=== PATIENT | male | born 1945 | race Caucasian/White ===

== ENCOUNTER 2020-07-01 10:18 | Inpatient (IN) ==
[2020-07-01] MEDS ORDERED: IOPAMIDOL 100 ML BOTTLE IV ONE (10:19)
[2020-07-01] MEDS ORDERED: cefTRIAXone 1 GM VIAL IV ONE (12:22)
[2020-07-01] MEDS ORDERED: DEXAMETHASONE 10 MG/ML VIAL IV ONE (12:22)
--- NOTE | 2020-07-01 12:31 | Emergency Department Note ---
HPI General Chief complaint: Cold/Flu Symptoms Stated complaint: body aches, shortness of breath Time Seen by Provider: 07/01/20 12:00 Source: patient Mode of arrival: ambulatory Limitations: no limitations History of Present Illness HPI Narrative: Narrative: Presents to room T7 for evaluation of shortness of breath with cough and fever. The patient reports that he has a history of COPD but does not take oxygen. He states yesterday evening he developed persistent cough with shortness of breath. He denies any sputum production. No chest pain. He does report a fever of 101. No chills or rigors. The patient states that he has had the [employer] vaccine and his second vaccine was 1 week ago. Related Data Home Medications Medication Instructions Recorded Confirmed atorvastatin 20 mg PO HS 12/04/14 12/29/18 clopidogrel 75 mg PO DAILY 12/04/14 12/29/18 diazepam [Valium] 10 mg PO TID 12/04/14 07/01/20 levothyroxine 75 mcg PO DAILY 12/04/14 07/01/20 primidone [Mysoline] 100 mg PO TID 12/04/14 07/01/20 sertraline 100 mg PO DAILY 12/04/14 12/29/18 aspirin [Adult Low Dose Aspirin EC] 81 mg PO DAILY 01/18/16 12/29/18 nitroglycerin 0.4 mg SL PRN PRN 01/18/16 07/01/20 potassium chloride 10 meq PO BID 08/21/16 07/01/20 albuterol sulfate [Ventolin HFA] 2 puff INHALATION Q4HP PRN 07/01/20 07/01/20 hydrocodone-acetaminophen 1 tab PO Q6HP PRN 07/01/20 07/01/20 rosuvastatin 10 mg PO HS 07/01/20 07/01/20 Allergies Allergy/AdvReac Type Severity Reaction Status Date / Time No Known Drug Allergies Allergy Verified 07/01/20 10:24 Review of Systems ROS ROS Narrative: Narrative: All systems ED: reviewed and negative except as stated. [facility] Narrative Patient History Narrative: Narrative: Medical/Surgical/Family History All Active Problems (Updated 07/01/20 @ 17:28 by Fan Ovalles MD) Acute right flank pain (Acute) Essential tremor (Acute) Chest pain (Acute) Acute exacerbation of chronic obstructive airways disease (Acute) Sunburn due to ultraviolet radiation (other than sun) (Acute) Melena (Acute) Pancreatitis (Acute) Right renal artery stenosis (Acute) Chest wall contusion (Acute) Sprain and strain of wrist (Acute) Acute dyspnea (Acute) Bilateral pneumonia (Acute) COVID-19 (Acute) COPD with hypoxia (Acute) Abdominal aortic aneurysm (Acute) Medical History Acute exacerbation of chronic obstructive airways disease Acute right flank pain Chest pain Essential tremor Social History Smoking Status: Former smoker Exam Narrative Narrative: Narrative: General Limitations: no limitations General appearance: Present alert and in no apparent distress Head Head: Present atraumatic, normocephalic and normal inspection Eye Eye: Present normal appearance and EOMI; Absent conjunctival injection ENT ENT: Present normal exam and mucous membranes moist Neck Neck: Present normal inspection and trachea midline Respiratory Respiratory: Present normal lung sounds bilaterally; Absent respiratory distress Cardiovascular Cardiovascular: Present regular rate, normal rhythm and normal heart sounds Adbominal Abdominal: Present soft; Absent distention, tenderness, guarding and rebound Extremities Extremities: Present normal inspection; Absent tenderness Back Back: Present normal inspection; Absent tenderness Neurological Neurological: Present alert, oriented X3 and CN II-XII intact; Absent motor sensory deficit Psychiatric Psychiatric: Present normal affect and normal mood Skin Skin: Present warm (WNL) and dry; Absent rash Course Vital Signs Vital signs: Vital Signs Temperature 101.1 F H 07/01/20 10:18 Pulse Rate 129 H 07/01/20 10:18 Respiratory Rate 28 H 07/01/20 10:18 Blood Pressure 121/90 07/01/20 10:18 Pulse Oximetry (%) 92 07/01/20 10:18 Temperature 101.8 F H 07/01/20 13:09 Pulse Rate 95 H 07/01/20 16:59 Respiratory Rate 21 07/01/20 16:59 Blood Pressure 149/125 07/01/20 16:46 Pulse Oximetry (%) 94 07/01/20 16:59 MDM MDM Narrative Medical decision making narrative: Narrative: Patient presents for evaluation of increasing shortness of breath in the context of COPD and now fever. The patient's CT of the chest shows bilateral pneumonia. There is no evidence of pulmonary embolus. The patient was treated with IV antibiotics after blood cultures. The patient does have a mild leukocytosis at 11.4. The chemistry is unremarkable. Patient's EKG shows a sinus tachycardia. The patient's pulse ox was 89 to 90% on room air. CT of the abdomen pelvis does show extensive aortic aneurysm as noted in the radiologist report. I did discuss this case with Dr. Ferrer at [facility]. He states that the patient does not require urgent intervention and can be followed as an outpatient. I have discussed the case with the hospitalist. We will admit the patient. Incidentally the patient's initial Isela swab was positive for Covid and flu A. There was concern that this may be a false positive and a repeat study was obtained which showed positive for Covid and flu B. The patient did receive IV Decadron and sup plemental oxygen in the emergency department. Lab Data Lab results reviewed: Yes I reviewed the patient's lab results. Result diagrams: 07/01/20 12:47 07/01/20 12:47 Labs: Lab Results 07/01/20 07/01/20 07/01/20 Range/Units 12:47 12:47 12:47 WBC 11.4 H (4.5-11.0) K/mcL RBC 4.49 L (4.50-5.90) M/mcL Hgb 14.4 (13.5-16.5) g/dL Hct 44.0 (41.0-55.0) % POC Hct 45 (41-55) % MCV 98.0 (80.0-100.0) fL MCH 32.1 (26.0-34.0) pg MCHC 32.7 (31.0-36.0) g/dL RDW 12.6 (11.5-14.5) % Plt Count 154 (140-440) K/mcL MPV 11.4 H (7.4-10.4) fL Neut % (Auto) 78.4 H (38.0-78.0) % Lymph % (Auto) 13.8 L (15.0-49.0) % [place] % (Auto) 6.9 (1.0-12.0) % Eos % (Auto) 0.4 (0.0-7.0) % Baso % (Auto) 0.5 (0.0-2.0) % Lymph # (Auto) 1.57 (1.50-4.80) K/mcL [place] # (Auto) 0.78 (0.10-0.90) K/mcL Eos # (Auto) 0.04 (0.00-0.70) K/mcL Baso # (Auto) 0.06 (0.00-0.20) K/mcL Absolute Neutrophils 8.92 H (1.80-8.00) K/mcL VBG Lactic Acid (0.5-2.0) mmol/L POC Sodium 139 (133-145) mEq/L Sodium 137 (133-145) mmol/L POC Potassium 4.3 (3.3-5.1) mEql/L Potassium 4.4 (3.3-5.1) mmol/L POC Chloride 103 (96-108) mEq/L Chloride 103 (96-108) mmol/L Carbon Dioxide 24 (22-30) mmol/L POC Total CO2 25 (22-30) mmol/L Anion Gap 10.0 (8.0-16.0) POC BUN 12 (6-20) mg/dL BUN 12 (8-23) mg/dL Creatinine 1.0 (0.7-1.2) mg/dL POC Creatinine 0.8 (0.6-1.2) mg/dL GFR Calculation 74 Glucose 126 H (70-105) mg/dL POC Glucose 135 H (70-105) mg/dL Calcium 8.9 (8.6-10.4) mg/dL POC WB Ioniz Calcium 1.19 (1.16-1.32) mmEq/L Total Bilirubin 0.5 (0.1-1.0) mg/dL AST 24 (<40) U/L ALT 17 (<40) U/L Alkaline Phosphatase 63 (39-117) U/L Troponin T 0.02 (<0.03) ng/mL NT-Pro-B Natriuret Pep 255.7 H (<125.0) pg/mL Total Protein 6.0 (5.9-8.4) gm/dL Albumin 3.5 (3.2-5.2) gm/dL Globulin 2.5 (2.2-3.7) gm/dL Albumin/Globulin Ratio 1.4 (1.0-2.3) Urine Color Urine Appearance (Clear) Urine pH (5.0-9.0) Ur Specific [place] (1.000-1.035) Urine Protein (Negative) mg/dL Urine Glucose (UA) (Negative) mg/dL Urine Ketones (Negative) mg/dL Urine Occult Blood (Negative) [place]/mcL Urine Nitrate (Negative) Urine Bilirubin (Negative) mg/dL Urine Urobilinogen mg/dL Ur Leukocyte Esterase (Negative) /ug Urine RBC (0-3) /hpf Urine WBC (0-4) /hpf Ur Squamous Epith Cells (0-4) /hpf Urine Bacteria (0) /hpf Urine Mucus (None) /hpf Ur Culture Indicated? 07/01/20 07/01/20 Range/Units 12:47 15:10 WBC (4.5-11.0) K/mcL RBC (4.50-5.90) M/mcL Hgb (13.5-16.5) g/dL Hct (41.0-55.0) % POC Hct (41-55) % MCV (80.0-100.0) fL MCH (26.0-34.0) pg MCHC (31.0-36.0) g/dL RDW (11.5-14.5) % Plt Count (140-440) K/mcL MPV (7.4-10.4) fL Neut % (Auto) (38.0-78.0) % Lymph % (Auto) (15.0-49.0) % [place] % (Auto) (1.0-12.0) % Eos % (Auto) (0.0-7.0) % Baso % (Auto) (0.0-2.0) % Lymph # (Auto) (1.50-4.80) K/mcL [place] # (Auto) (0.10-0.90) K/mcL Eos # (Auto) (0.00-0.70) K/mcL Baso # (Auto) (0.00-0.20) K/mcL Absolute Neutrophils (1.80-8.00) K/mcL VBG Lactic Acid 2.9 H (0.5-2.0) mmol/L POC Sodium (133-145) mEq/L Sodium (133-145) mmol/L POC Potassium (3.3-5.1) mEql/L Potassium (3.3-5.1) mmol/L POC Chloride (96-108) mEq/L Chloride (96-108) mmol/L Carbon Dioxide (22-30) mmol/L POC Total CO2 (22-30) mmol/L Anion Gap (8.0-16.0) POC BUN (6-20) mg/dL BUN (8-23) mg/dL Creatinine (0.7-1.2) mg/dL POC Creatinine (0.6-1.2) mg/dL GFR Calculation Glucose (70-105) mg/dL POC Glucose (70-105) mg/dL Calcium (8.6-10.4) mg/dL POC WB Ioniz Calcium (1.16-1.32) mmEq/L Total Bilirubin (0.1-1.0) mg/dL AST (<40) U/L ALT (<40) U/L Alkaline Phosphatase (39-117) U/L Troponin T (<0.03) ng/mL NT-Pro-B Natriuret Pep (<125.0) pg/mL Total Protein (5.9-8.4) gm/dL Albumin (3.2-5.2) gm/dL Globulin (2.2-3.7) gm/dL Albumin/Globulin Ratio (1.0-2.3) Urine Color Yellow Urine Appearance Clear (Clear) Urine pH 6.0 (5.0-9.0) Ur Specific [place] 1.015 (1.000-1.035) Urine Protein Negative (Negative) mg/dL Urine Glucose (UA) Negative (Negative) mg/dL Urine Ketones Negative (Negative) mg/dL Urine Occult Blood Trace-intact A (Negative) [place]/mcL Urine Nitrate Negative (Negative) Urine Bilirubin Negative (Negative) mg/dL Urine Urobilinogen Normal mg/dL Ur Leukocyte Esterase Negative (Negative) /ug Urine RBC 2 (0-3) /hpf Urine WBC < 1 (0-4) /hpf Ur Squamous Epith Cells 0 (0-4) /hpf Urine Bacteria None (0) /hpf Urine Mucus Few A (None) /hpf Ur Culture Indicated? No ED POC Tests ED POC Tests: DILIP - Influenza A Positive DILIP - Influenza B Negative DILIP - SARS Antigen Positive Radiology Data Radiology results reviewed: Yes I reviewed the patient's radiology results. EKG Data EKG #1: EKG attestation: Yes I reviewed and interpreted this EKG., Yes There are no EKG findings of acute coronary syndrome and Yes This EKG will be read by logistics account manager EKG results narrative: Normal sinus rhythm, rate 104, normal ST segments, normal QRS, no ectopy Rhythm Strip Data Rhythm Strip Rate: 105 Interpretation: Sinus tachycardia Pulse Oximetry Data Pulse Ox %: 89 Interpretation: Room air, hypoxia CC TIME Critical Care Time Critical Care Time: Yes Total Critical Care Time: 30 Attestation: Approximately 30 minutes of critical care time was used in order to assess and manage the high probability of imminent or life threatening deterioration which required my highest level of preparedness and interventions with frequent patient assessments. This time is excluding time spent on separately billable procedures. Discharge Plan Patient/Caregiver Discharge Instructions Pt seen by CLOCKMAKER APPRENTICE/PA only: No Clinical Impression: Acute dyspnea, Bilateral pneumonia, COVID-19, COPD with hypoxia, Abdominal aortic aneurysm Patient Disposition: Xfer As Inpt ([facility]) Follow up with: Sandip Lyons DO [Primary Care Provider] - Prescriptions: No Action atorvastatin 40 MG Tablet 20 mg PO HS RF: 0 primidone [Mysoline] 50 MG tablet 100 mg PO TID RF: 0 levothyroxine 50 MCG tablet 75 mcg PO DAILY RF: 0 diazepam [Valium] 10 MG tablet 10 mg PO TID RF: 0 sertraline 50 MG Tablet 100 mg PO DAILY RF: 0 clopidogrel 300 MG Tablet 75 mg PO DAILY RF: 0 aspirin [Adult Low Dose Aspirin] 81 MG Tablet.Dr 81 mg PO DAILY RF: 0 nitroglycerin 0.4 MG tablet, sublingual 0.4 mg SL PRN PRN (Reason: Chest Pain) RF: 0 potassium chloride 10 MEQ tablet extended release 10 meq PO BID RF: 0 albuterol sulfate [Ventolin HFA] 90 mcg/actuation Hfa Aerosol Inhaler 2 puff INHALATION Q4HP PRN (Reason: Shortness Of Breath) RF: 0 rosuvastatin 10 mg Tablet 10 mg PO HS RF: 0 hydrocodone-acetaminophen 1 TAB tablet 1 tab PO Q6HP PRN (Reason: Pain) RF: 0
[2020-07-01 13:05] LABS: POC Blood Urea Nitrogen 12 mg/dL (6-20); POC CO2 25 mmol/L (22-30); POC Calcium, Ionized 1.19 mmEq/L (1.16-1.32); POC Chloride 103 mEq/L (96-108); POC Creatinine 0.8 mg/dL (0.6-1.2); POC Glucose, Random 135 mg/dL (70-105); POC Hematocrit 45 % (41-55); POC Potassium 4.3 mEql/L (3.3-5.1); POC Sodium 139 mEq/L (133-145)
[2020-07-01] MEDS ORDERED: fentaNYL 100 MCG/2 ML VIAL IV ONE (13:22)
[2020-07-01] MEDS ORDERED: ONDANSETRON 4 MG/2 ML VIAL IV ONE (13:23)
[2020-07-01 13:50] LABS: Basophils # (Auto) 0.06 K/mcL (0.00-0.20); Basophils % (Auto) 0.5 % (0.0-2.0); Eosinophils # (Auto) 0.04 K/mcL (0.00-0.70); Eosinophils % (Auto) 0.4 % (0.0-7.0); Hemoglobin 14.4 g/dL (13.5-16.5); Lymphocytes # (Auto) 1.57 K/mcL (1.50-4.80); Lymphocytes % (Auto) 13.8 % (15.0-49.0); Mean Corpuscular HGB Conc 32.7 g/dL (31.0-36.0); Mean Platelet Volume 11.4 fL (7.4-10.4); Monocytes # (Auto) 0.78 K/mcL (0.10-0.90); Monocytes % (Auto) 6.9 % (1.0-12.0); Neutrophils % (Auto) 78.4 % (38.0-78.0); Platelet Count 154 K/mcL (140-440); RBC 4.49 M/mcL (4.50-5.90); Red Cell Distribution Width 12.6 % (11.5-14.5); WBC 11.4 K/mcL (4.5-11.0)
[2020-07-01 14:13] LABS: proBNP 255.7 pg/mL (<125.0)
[2020-07-01 14:18] LABS: ALT/SGPT 17 U/L (<40); AST/SGOT 24 U/L (<40); Albumin 3.5 gm/dL (3.2-5.2); Albumin/Globulin Ratio 1.4 (1.0-2.3); Alkaline Phosphatase 63 U/L (39-117); Bilirubin,Total 0.5 mg/dL (0.1-1.0); Blood Urea Nitrogen 12 mg/dL (8-23); Calcium 8.9 mg/dL (8.6-10.4); Carbon Dioxide 24 mmol/L (22-30); Chloride 103 mmol/L (96-108); Globulin 2.5 gm/dL (2.2-3.7); Glomerular Filtration Rate 74; Glucose 126 mg/dL (70-105)
--- NOTE | 2020-07-01 14:22 | Cat Scan Report ---
INDICATION: SOA, hx of AAA COMPARISON: Previous chest CT scan dated 09/27/2019. Previous abdominal and pelvic CT scan dated 10/04/2018 TECHNIQUE: Axial images were obtained through the chest,abdomen and pelvis. Sagittally and coronally reformatted images. 90ml Isovue 370 injected intravenously. Oral contrast material was not administered FINDINGS: Chest CT: Lungs:Severe emphysema. There is a spiculated density in the right upper lobe. This measures 9 mm maximally. This is unchanged since 09/27/2019. Continued follow-up necessary to exclude malignancy. There is infiltrate in the left upper lobe and left lower lobe. These focal infiltrates are new since previous examination. Findings are suspicious for superimposed infection upon severe emphysema. No other focal pulmonary parenchymal mass. There is no honeycombing. No bronchiectasis. Mediastinum:Mild mediastinal adenopathy is nonspecific but slightly increased since previous examination. Main pulmonary artery, right pulmonary artery, left pulmonary artery are negative. No intraluminal filling defects. No lobar, segmental, or subsegmental abnormalities. Thoracic aorta is negative. There is no aneurysmal dilatation. No significant calcification of the aortic arch. There is no dissection. Heart:No significant cardiomegaly. No pericardial effusion. Severe coronary artery calcification Pleura:No pleural fluid. No pleural-based mass. No pleural calcifications Axilla, supraclavicular regions, chest wall:There is an abnormal right axillary lymph node. This is round without normal hilum. This measures 2.3 x 2.7 cm. This is increased slightly in size since previous examination. It previously measured 2.3 cm in maximum dimension. There is no pathologic left axillary adenopathy Musculoskeletal:Negative thoracic spine. No compression fractures. No lytic lesions. No paraspinal mass Abdomen/Pelvis: Liver:Negative liver. No focal intrahepatic mass. Liver contour is smooth. There is no ascites Gallbladder, bilary:Previous cholecystectomy. Common bile duct measures 12 mm. No intrahepatic bile duct dilatation. Spleen:No splenomegaly. No focal intrasplenic abnormality. Normal enhancement of splenic and portal veins. Pancreas:No pancreatic mass. No peripancreatic abnormality Adrenal glands:Negative Kidneys, ureters, bladder:No solid renal mass. No hydronephrosis. Small benign right renal cyst is stable No hydroureter. No ureteral stones Bladder is grossly negative. No bladder calculi Gastrointestinal:No detectable colonic mass. There is no diverticulitis. There is extensive sigmoid diverticulosis. Small bowel is negative. No mechanical small bowel obstruction. Stomach and duodenum are within normal limits Appendix: The appendix is well visualized. No evidence for appendicitis Vascular:There is calcification of the abdominal aorta. There is an irregular infrarenal abdominal aortic aneurysm. This measures 4.2 cm in maximum mediolateral dimension, 4.3 cm in AP dimension, and approximately 11.0 cm in craniocaudal dimension. There is extensive mural thrombus. There is a finding consistent with a thrombosed penetrating ulcer anterolateral leg. This measures 1.5 x 3.6 cm and has increased in size since previous examination. Although there is no contrast material within this apparent penetrating ulcer isn't appears unstable. There is a 2nd area of exophytic contour abnormality with mural thrombus. This is in the proximal portion of the abdominal aortic aneurysm and extends posterolaterally toward the left. This is slightly more prominent than on previous examination. This may be a thrombosed penetrating ulcer with slight interval growth. Origins of the celiac trunk and superior mesenteric artery are negative. There is calcification of the common iliac arteries and external iliac arteries bilaterally. No stenosis or occlusion. Common iliac arteries are mildly ectatic and measure 1.5 cm in cross-sectional diameter. Lymphatic:No pathologic retroperitoneal or mesenteric adenopathy Mesentery, peritoneum:No free intraperitoneal fluid. No intra-abdominal abscess. No pneumoperitoneum Reproductive:Prostate is moderately enlarged with calcification Musculoskeletal:No compression fractures. No lytic lesions. Sacrum, pelvis, hips are negative. There is no anterior abdominal wall or inguinal hernia IMPRESSION: 1. Severe emphysema 2. Spiculated parenchymal density in the right upper lobe is stable since 09/27/2019. Continued follow-up recommended 3. Acute infiltrates in the left upper lobe and left lower lobe may be consistent with pneumonia superimposed upon chronic emphysematous disease 4. Severe coronary artery calcification. 5. Nonspecific mediastinal adenopathy 6. 2.7 cm right axillary lymph node. This is enlarged slightly since previous examination 7. Previous cholecystectomy. Common bile but is dilated to 12 mm 8. Severe atherosclerotic disease within the abdominal aorta. 4 irregular infrarenal abdominal aortic aneurysm is stable in overall size. There is extensive mural thrombosis 9. Findings consistent with thrombosed penetrating ulcers, slightly increased 10. No aortic dissection The exam was performed using radiation dose optimization techniques including, but not limited to, automated exposure control, adjustment of the mA and/or kV according to patient size and use of iterative reconstruction technique. Interpreted and Authenticated by: Timi Kelly 07/01/20
[2020-07-01 16:53] LABS: Appearance,Urine Clear (Clear); Bilirubin,Urine Negative (Negative); Color,Urine Yellow; Culture Indicated,Urine No; Glucose,Urine (UA) Negative (Negative); Ketones,Urine Negative (Negative); Leukocyte Esterase,Urine Negative /ug (Negative); Mucus,Urine FEW /hpf; Nitrate,Urine Negative (Negative); Protein,Urine Negative (Negative); Specific Gravity,Urine 1.015 (1.000-1.035); Urine Blood Trace-intact ery/mcL (Negative); Urine RBC 2 /hpf (0-3); Urine Squamous Epithelial Cell 0 /hpf (0-4); Urine WBC < 1 /hpf (0-4); Urobilinogen,Urine Normal
--- NOTE | 2020-07-01 17:10 | Internal Med History&Physical ---
HPI History of Present Illness Patient information: Note initiated : 07/01/20 at 4:48 pm Service Date, if different from initiated Date: [] Patient: Atilio Gallardo a 74 y/o M admitted on for body aches, shortness of breath. Chief Complaint: [] History of present illness: Mr. Gallardo is a 74 year old male with a history of COPD, CAD, AAA, Hypothyroidism who presented to the ED for fever and cough. In the ED the patient was found to be hypoxic, febrile (101.8 F), tachycardic, and tachypneic. ED labs showed mild leukocytosis. Lactic acid was 2.9. NT-pro BNP was mildly elevated. Pulmonary imaging with contrast CT scan showed left upper and left lower lobe infiltrates consistent with pneumonia superimposed on chronic emphysematous disease. the ED CT chest/abdomen/pelvis also showed interval enlargement of abdominal aortic aneurysm and right axillary lymph node since comparison CT scans in 2018 (abdomen/pelvis) and 2019 (chest), respectively. In the ED, the patient tested positive for influenza A and SARS-CoV-2 antigens. The patient said he received his second Pfizer COVID vaccine about 1 week ago. Review of Systems Constitutional: positive for fever and fatigue Eyes: no vision changes or pain Cardiovascular: no chest pain, no palpitations Respiratory: positive or productive cough and shortness of breath Gastrointestinal: positive for right lower quadrant abdominal pain Genitourinary: no dysuria or difficulty voiding Musculoskeletal: bilateral knee pain Integumentary: no skin lesion or wound Neurological: no focal weakness or numbness Psychiatric: no anxiety or depression PFSH PFSH All Active Problems (Updated 07/01/20 @ 17:28 by Fan Ovalles MD) Acute right flank pain (Acute) Essential tremor (Acute) Chest pain (Acute) Acute exacerbation of chronic obstructive airways disease (Acute) Sunburn due to ultraviolet radiation (other than sun) (Acute) Melena (Acute) Pancreatitis (Acute) Right renal artery stenosis (Acute) Chest wall contusion (Acute) Sprain and strain of wrist (Acute) Acute dyspnea (Acute) Bilateral pneumonia (Acute) COVID-19 (Acute) COPD with hypoxia (Acute) Abdominal aortic aneurysm (Acute) Medical History Acute exacerbation of chronic obstructive airways disease Acute right flank pain Chest pain Essential tremor MEDS/ALLERGIES Home Medications and Allergies Home Medications Medication Instructions Recorded Confirmed Type atorvastatin 20 mg PO HS 12/04/14 12/29/18 History clopidogrel 75 mg PO DAILY 12/04/14 12/29/18 History diazepam [Valium] 10 mg PO TID 12/04/14 07/01/20 History levothyroxine 75 mcg PO DAILY 12/04/14 07/01/20 History primidone [Mysoline] 100 mg PO TID 12/04/14 07/01/20 History sertraline 100 mg PO DAILY 12/04/14 12/29/18 History aspirin [Adult Low Dose Aspirin EC] 81 mg PO DAILY 01/18/16 12/29/18 History nitroglycerin 0.4 mg SL PRN PRN 01/18/16 07/01/20 History potassium chloride 10 meq PO BID 08/21/16 07/01/20 History albuterol sulfate [Ventolin HFA] 2 puff INHALATION Q4HP PRN 07/01/20 07/01/20 History hydrocodone-acetaminophen 1 tab PO Q6HP PRN 07/01/20 07/01/20 History rosuvastatin 10 mg PO HS 07/01/20 07/01/20 History Allergies Allergy/AdvReac Type Severity Reaction Status Date / Time No Known Drug Allergies Allergy Verified 07/01/20 10:24 EXAM Constitutional Vitals: Temp Pulse Resp BP Pulse Ox 101.8 F H 102 H 24 H 105/68 96 07/01/20 13:09 07/01/20 15:46 07/01/20 15:46 07/01/20 15:46 07/01/20 15:46 Additional findings Additional findings: Head: Atraumatic, normal inspection. Eyes: normal appearance, no scleral icterus. Neck: full ROM Respiratory: nasal canula oxygen (2l/min), bilateral rales . Cardiovascular: normal rate and rhythm, S1, S2, pacemaker present left upper chest GI/Abdominal: soft, tenderness RLQ, no guarding. Extremities: full range of motion, nontender. Neurological: CN II-XII intact, intact motor, intact sensation. Psychiatric: normal mood. Skin: warm, normal color DATA Data Completed and Pending Labs: Labs from last 24 hours 07/01/20 07/01/20 07/01/20 15:10 12:47 12:47 WBC RBC Hgb Hct POC Hct MCV MCH MCHC RDW Plt Count MPV Neut % (Auto) Lymph % (Auto) [place] % (Auto) Eos % (Auto) Baso % (Auto) Lymph # (Auto) [place] # (Auto) Eos # (Auto) Baso # (Auto) Absolute Neutrophils VBG Lactic Acid 2.9 H POC Sodium Sodium POC Potassium Potassium POC Chloride Chloride Carbon Dioxide POC Total CO2 Anion Gap POC BUN BUN Creatinine POC Creatinine GFR Calculation Glucose POC Glucose Calcium POC WB Ioniz Calcium Total Bilirubin AST ALT Alkaline Phosphatase Troponin T 0.02 NT-Pro-B Natriuret Pep Total Protein Albumin Globulin Albumin/Globulin Ratio Urine Color Pending Urine Appearance Pending Urine pH Pending Ur Specific [place] Pending Urine Protein Pending Urine Glucose (UA) Pending Urine Ketones Pending Urine Occult Blood Pending Urine Nitrate Pending Urine Bilirubin Pending Urine Urobilinogen Pending Ur Leukocyte Esterase Pending 07/01/20 07/01/20 12:47 12:47 WBC 11.4 H RBC 4.49 L Hgb 14.4 Hct 44.0 POC Hct 45 MCV 98.0 MCH 32.1 MCHC 32.7 RDW 12.6 Plt Count 154 MPV 11.4 H Neut % (Auto) 78.4 H Lymph % (Auto) 13.8 L [place] % (Auto) 6.9 Eos % (Auto) 0.4 Baso % (Auto) 0.5 Lymph # (Auto) 1.57 [place] # (Auto) 0.78 Eos # (Auto) 0.04 Baso # (Auto) 0.06 Absolute Neutrophils 8.92 H VBG Lactic Acid POC Sodium 139 Sodium 137 POC Potassium 4.3 Potassium 4.4 POC Chloride 103 Chloride 103 Carbon Dioxide 24 POC Total CO2 25 Anion Gap 10.0 POC BUN 12 BUN 12 Creatinine 1.0 POC Creatinine 0.8 GFR Calculation 74 Glucose 126 H POC Glucose 135 H Calcium 8.9 POC WB Ioniz Calcium 1.19 Total Bilirubin 0.5 AST 24 ALT 17 Alkaline Phosphatase 63 Troponin T NT-Pro-B Natriuret Pep 255.7 H Total Protein 6.0 Albumin 3.5 Globulin 2.5 Albumin/Globulin Ratio 1.4 Urine Color Urine Appearance Urine pH Ur Specific [place] Urine Protein Urine Glucose (UA) Urine Ketones Urine Occult Blood Urine Nitrate Urine Bilirubin Urine Urobilinogen Ur Leukocyte Esterase A/P Narrative A/P Narrative: Assessment: 74 year old male with a history of COPD, CAD, AAA, hypothyroidism admitted for community acquired pneumonia. #Hypoxic respiratory failure #Community acquired pneumonia #Positive Isela for Influenza and SARS antigens #Sepsis secondary to pneumonia #Lactic acidosis #COPD #Abdominal aortic aneurysm #Pathologic right axillary lymphadenopathy #Coronary artery disease-stable Plan -Ceftriaxone and Azithromycin IV for now, deescalate to oral when afebrile x48hrs. -Dexamethasone daily. -Tamiflu BID pending influenza PCR results. -Scheduled duonebs, albuterol nebs prn. -Oxygen supplementation as needed. -IV fluid, repeat lactic acid. -Sputum culture. -Follow blood cultures. -Follow up SARS-CoV-2 PCR ([place]), if positive start Remdesivir. -Respiratory panel 1 for Influenza A/B PCR. -Medication reconciliation then resume essential home meds. -DVT ppx: lovenox SQ -Code status: Full -Disposition: home Time Spent With Patient Time: Total time spent is greater than 50% in coordination of care (as documented) at patient's floor/unit and/or counseling patient:
[2020-07-01] MEDS ORDERED: 0.9 % SODIUM CHLORIDE 1,000 ML IV ONE (19:19)
[2020-07-01] MEDS ORDERED: ONDANSETRON 4 MG/2 ML VIAL IV PRN (19:19)
[2020-07-01] MEDS ORDERED: cefTRIAXone 1 GM in DEXTROSE 5% IN WATER 50 ML IV SCH (19:19)
[2020-07-01] MEDS ORDERED: ALBUTEROL SULFATE 2.5 MG/3 ML NEBULIZER NEB PRN (19:19)
[2020-07-01] MEDS: DOCUSATE SODIUM 100 MG CAPSULE PO SCH (20:41)
[2020-07-01] MEDS ORDERED: SENNOSIDES 1 TABLET PO SCH (21:00)
[2020-07-01] MEDS ORDERED: AZITHROMYCIN 500 MG in DEXTROSE 5% IN WATER 250 ML IV SCH (21:00)
[2020-07-01] MEDS ORDERED: OSELTAMIVIR PHOSPHATE 75 MG CAPSULE PO SCH (21:00)
[2020-07-01] MEDS: 0.9 % SODIUM CHLORIDE 10 ML SYRINGE IV SCH (21:16)
[2020-07-01] MEDS: IPRATROPIUM/ALBUTEROL 3 ML AMPUL.NEB NEB SCH (21:34)
[2020-07-01] MEDS ORDERED: MELATONIN 3 MG TABLET PO PRN (22:16)
[2020-07-01] MEDS ORDERED: MELATONIN 3 MG TABLET PO ONE (22:35)
[2020-07-02] MEDS: IPRATROPIUM/ALBUTEROL 3 ML AMPUL.NEB NEB SCH ×3 (01:56→13:55)
[2020-07-02] MEDS: 0.9 % SODIUM CHLORIDE 10 ML SYRINGE IV SCH ×2 (06:08→13:10)
[2020-07-02 07:29] LABS: Hematocrit 40.6 % (41.0-55.0); Hemoglobin 13.2 g/dL (13.5-16.5); Mean Cell Volume 99.3 fL (80.0-100.0); Mean Corpuscular HGB Conc 32.5 g/dL (31.0-36.0); Mean Platelet Volume 11.8 fL (7.4-10.4); Platelet Count 134 K/mcL (140-440); RBC 4.09 M/mcL (4.50-5.90); Red Cell Distribution Width 12.8 % (11.5-14.5); WBC 8.6 K/mcL (4.5-11.0)
[2020-07-02 07:44] LABS: Blood Urea Nitrogen 17 mg/dL (8-23); Carbon Dioxide 23 mmol/L (22-30); Chloride 104 mmol/L (96-108); Glomerular Filtration Rate 84; Glucose 186 mg/dL (70-105)
[2020-07-02 08:16] LABS: Band Neutrophils % 1 % (0-10); Lymphocytes % 10 % (15-49); Monocytes % (Manual) 4 % (1-12); Myelocytes % 1 %; Platelet Estimate DECREASED (Normal); RBC Morphology NORMAL (Normal); Reactive Lymphocytes 1 % (0-2); Segmented Neutrophils % 83 % (38-78)
[2020-07-02] MEDS: DOCUSATE SODIUM 100 MG CAPSULE PO SCH (08:33)
[2020-07-02] MEDS ORDERED: ENOXAPARIN 40 MG/0.4 ML SYRINGE SQ SCH (09:00)
[2020-07-02] MEDS ORDERED: DEXAMETHASONE 4 MG TABLET PO SCH (09:00)
[2020-07-02] MEDS ORDERED: cefTRIAXone 1 GM VIAL IV SCH (09:00)
[2020-07-02] MEDS ORDERED: 0.9 % SODIUM CHLORIDE 1,000 ML IV ONE (12:20)
--- NOTE | 2020-07-02 12:20 | Discharge Summary ---
Discharge Provider Provider Patient information: Note initiated : 07/02/20 at 12:16 pm Service Date, if different from initiated Date: [] Patient: Atilio Gallardo 74 y/o M admitted on 07/01/20 for body aches, shortness of breath. Chief Complaint: [] Date of admission: 07/01/20 18:36 Discharge date: 07/02/20 Primary care physician: Sandip Lyons Consults: 07/01/20 Consult to Physician [CONS] Stat Comment: Consulting Provider: Andres Skelton Reason For Exam: Physician to Consult Discharge Meds Discharge Medications Home Medications atorvastatin 20 mg PO HS 12/04/14 [History Confirmed 07/01/20 Last Taken 09/14 20:00] diazepam [Valium] 10 mg PO TID 12/04/14 [History Confirmed 07/01/20 Last Taken 06/30/20 08:00] levothyroxine 75 mcg PO DAILY 12/04/14 [History Confirmed 07/01/20 Last Taken 07/01/20 08:00] primidone [Mysoline] 100 mg PO TID 12/04/14 [History Confirmed 07/01/20 Last Taken 07/01/20 08:00] sertraline 100 mg PO DAILY 12/04/14 [History Confirmed 07/01/20 Last Taken 06/30/20 20:00] aspirin [Adult Low Dose Aspirin] 81 mg PO DAILY 01/18/16 [History Confirmed 07/01/20 Last Taken 06/30/20 08:00] nitroglycerin 0.4 mg SL PRN PRN 01/18/16 [History Confirmed 07/01/20 Last Taken 06/29/20 08:00] potassium chloride 10 meq PO QIDP 08/21/16 [History Confirmed 07/01/20 Last Taken 07/01/20 08:00] albuterol sulfate [Ventolin HFA] 2 puff INHALATION Q4HP PRN 07/01/20 [History Confirmed 07/01/20 Last Taken 06/30/20 08:00] hydrocodone-acetaminophen 1 tab PO Q6HP PRN 07/01/20 [History Confirmed 07/01/20 Last Taken 06/30/20 20:00] rosuvastatin 10 mg PO HS 07/01/20 [History Confirmed 07/01/20 Last Taken 06/30/20 20:00] azithromycin 250 mg PO QDAY 4 Days #4 tab 07/02/20 [Rx Last Taken Unknown] cefuroxime axetil 500 mg PO BID 4 Days #8 tab 07/02/20 [Rx Last Taken Unknown] COURSE Hospital Course Hospital course: Mr. Gallardo is a 74 year old male with a history of COPD, CAD, AAA, hypothyroidism who presented to the ED for fever and cough. In the ED the patient was found to be hypoxic, febrile (101.8 F), tachycardic, and tachypneic. ED labs showed mild leukocytosis. Lactic acid was 2.9. NT-pro BNP was mildly elevated. Pulmonary imaging with contrast CT scan showed left upper and left lower lobe infiltrates consistent with pneumonia superimposed on chronic emphysematous disease. the ED CT chest/abdomen/pelvis also showed interval enlargement of abdominal aortic aneurysm and right axillary lymph node since comparison CT scans in 2018 (abdomen/pelvis) and 2019 (chest), respectively. In the ED, the patient tested positive for influenza A and SARS-CoV-2 antigens however follow up PCR testing for influenza and SARS-CoV-2 was negative. The initial positive test was likely a result of equipment issues as there were several other similar cases on that day in the ED. Sputum culture likely contaminated-many epithelial cells present. Blood cultures showing no growth at discharge. By the next day the patient felt much better and wanted to go home. Repeat lactic acid was elevated, the patient was given more IV fluid followed by decrease in lactic acid but not back to normal. The patient's blood pressure was stable, he was weaned off nasal [place] oxygen. The patient was discharged to home to complete about 5 day of oral antibiotic treatment for community acquired pneumonia. Discharge diagnosis: Community acquired pneumonia Time Spent with Patient Time attestation: Total time spent providing and/or coordinating discharge services: EXAM Constitutional Vitals: Temp Pulse Resp BP Pulse Ox 97.4 F 89 18 98/55 95 07/02/20 08:42 07/02/20 08:42 07/02/20 08:42 07/02/20 08:42 07/02/20 08:42 Head Head exam: Present normal inspection and normocephalic Eye Eye exam: Present normal appearance ENT ENT exam: Present normal exam Respiratory Respiratory exam: Absent accessory muscle use, respiratory distress and wheezes Expanded Respiratory Exam Location: rales: Left Cardiovascular Cardiovascular exam: Present normal rate and rhythm GI/Abdominal GI/Abdominal exam: Present soft; Absent rebound and tenderness Extremities Exam Extremities exam: Present full ROM and normal inspection Neurological Exam Neurological exam: Present alert, CN II-XII intact and oriented X3 Psychiatric Psychiatric exam: Present normal mood Skin Skin exam: Present normal color and warm Discharge Data Data Completed and Pending Labs on day of discharge: Labs from last 24 hours 07/02/20 07/02/20 07/02/20 09:06 05:42 05:42 WBC 8.6 RBC 4.09 L Hgb 13.2 L Hct 40.6 L POC Hct MCV 99.3 MCH 32.3 MCHC 32.5 RDW 12.8 Plt Count 134 L MPV 11.8 H Neut % (Auto) Lymph % (Auto) [place] % (Auto) Eos % (Auto) Baso % (Auto) Lymph # (Auto) [place] # (Auto) Eos # (Auto) Baso # (Auto) Seg Neutrophils % 83 H Band Neutrophils % 1 Lymphocytes % 10 L Monocytes % (Manual) 4 Myelocytes % 1 Absolute Neutrophils Reactive Lymphocytes 1 Platelet Estimate Decreased A RBC Morphology Normal VBG Lactic Acid 3.8 H POC Sodium Sodium 135 POC Potassium Potassium 4.2 POC Chloride Chloride 104 Carbon Dioxide 23 POC Total CO2 Anion Gap 8.0 POC BUN BUN 17 Creatinine 0.9 POC Creatinine GFR Calculation 84 Glucose 186 H POC Glucose Calcium 9.0 POC WB Ioniz Calcium Total Bilirubin AST ALT Alkaline Phosphatase Troponin T NT-Pro-B Natriuret Pep Total Protein Albumin Globulin Albumin/Globulin Ratio Urine Color Urine Appearance Urine pH Ur Specific [place] Urine Protein Urine Glucose (UA) Urine Ketones Urine Occult Blood Urine Nitrate Urine Bilirubin Urine Urobilinogen Ur Leukocyte Esterase Urine RBC Urine WBC Ur Squamous Epith Cells Urine Bacteria Urine Mucus Ur Culture Indicated? 07/01/20 07/01/20 07/01/20 15:10 12:47 12:47 WBC RBC Hgb Hct POC Hct MCV MCH MCHC RDW Plt Count MPV Neut % (Auto) Lymph % (Auto) [place] % (Auto) Eos % (Auto) Baso % (Auto) Lymph # (Auto) [place] # (Auto) Eos # (Auto) Baso # (Auto) Seg Neutrophils % Band Neutrophils % Lymphocytes % Monocytes % (Manual) Myelocytes % Absolute Neutrophils Reactive Lymphocytes Platelet Estimate RBC Morphology VBG Lactic Acid 2.9 H POC Sodium Sodium POC Potassium Potassium POC Chloride Chloride Carbon Dioxide POC Total CO2 Anion Gap POC BUN BUN Creatinine POC Creatinine GFR Calculation Glucose POC Glucose Calcium POC WB Ioniz Calcium Total Bilirubin AST ALT Alkaline Phosphatase Troponin T 0.02 NT-Pro-B Natriuret Pep Total Protein Albumin Globulin Albumin/Globulin Ratio Urine Color Yellow Urine Appearance Clear Urine pH 6.0 Ur Specific [place] 1.015 Urine Protein Negative Urine Glucose (UA) Negative Urine Ketones Negative Urine Occult Blood Trace-intact A Urine Nitrate Negative Urine Bilirubin Negative Urine Urobilinogen Normal Ur Leukocyte Esterase Negative Urine RBC 2 Urine WBC < 1 Ur Squamous Epith Cells 0 Urine Bacteria None Urine Mucus Few A Ur Culture Indicated? No 07/01/20 07/01/20 12:47 12:47 WBC 11.4 H RBC 4.49 L Hgb 14.4 Hct 44.0 POC Hct 45 MCV 98.0 MCH 32.1 MCHC 32.7 RDW 12.6 Plt Count 154 MPV 11.4 H Neut % (Auto) 78.4 H Lymph % (Auto) 13.8 L [place] % (Auto) 6.9 Eos % (Auto) 0.4 Baso % (Auto) 0.5 Lymph # (Auto) 1.57 [place] # (Auto) 0.78 Eos # (Auto) 0.04 Baso # (Auto) 0.06 Seg Neutrophils % Band Neutrophils % Lymphocytes % Monocytes % (Manual) Myelocytes % Absolute Neutrophils 8.92 H Reactive Lymphocytes Platelet Estimate RBC Morphology VBG Lactic Acid POC Sodium 139 Sodium 137 POC Potassium 4.3 Potassium 4.4 POC Chloride 103 Chloride 103 Carbon Dioxide 24 POC Total CO2 25 Anion Gap 10.0 POC BUN 12 BUN 12 Creatinine 1.0 POC Creatinine 0.8 GFR Calculation 74 Glucose 126 H POC Glucose 135 H Calcium 8.9 POC WB Ioniz Calcium 1.19 Total Bilirubin 0.5 AST 24 ALT 17 Alkaline Phosphatase 63 Troponin T NT-Pro-B Natriuret Pep 255.7 H Total Protein 6.0 Albumin 3.5 Globulin 2.5 Albumin/Globulin Ratio 1.4 Urine Color Urine Appearance Urine pH Ur Specific [place] Urine Protein Urine Glucose (UA) Urine Ketones Urine Occult Blood Urine Nitrate Urine Bilirubin Urine Urobilinogen Ur Leukocyte Esterase Urine RBC Urine WBC Ur Squamous Epith Cells Urine Bacteria Urine Mucus Ur Culture Indicated? Preliminary micro results at discharge 07/01/20 22:48 Gram Stain - Preliminary Sputum - Expectorated Discharge Plan Patient/Caregiver Discharge Instructions Activity: increase activity as tolerated Diet: Regular Diet Instructions: Cefuroxime (By mouth), Azithromycin (By mouth), Community Acquired Pneumonia (DC) Activity Restrictions/Additional Instructions: May resume regular diet as tolerated. Increase activity as tolerated. Call your physician for sustained fever greater than 100.5, increase in cough/sputum, increase in shortness of breath, or any questions/concerns. This discharge packet is provided to you to help keep you informed about your care. We want to ensure you get everything you need when you go home. You will also be receiving a call from us in a few days to follow up with you and see how you are doing since your discharge. This gives us a chance to listen to any concerns you maybe experiencing since you were discharged or any additional needs you may have, as well as providing us feedback on your care experience. We strive to always provide excellent care and thank you for your feedback and for choosing [facility]. Prescriptions: New cefuroxime axetil 500 mg tablet 500 mg PO BID 4 Days Qty: 8 RF: 0 azithromycin 250 mg tablet 250 mg PO QDAY 4 Days Qty: 4 RF: 0 Continued atorvastatin 40 MG tablet 20 mg PO HS RF: 0 primidone [Mysoline] 50 MG tablet 100 mg PO TID RF: 0 levothyroxine 50 MCG tablet 75 mcg PO DAILY RF: 0 diazepam [Valium] 10 MG tablet 10 mg PO TID RF: 0 sertraline 50 MG tablet 100 mg PO DAILY RF: 0 aspirin [Adult Low Dose Aspirin] 81 MG tablet,delayed release (DR/EC) 81 mg PO DAILY RF: 0 nitroglycerin 0.4 MG tablet, sublingual 0.4 mg SL PRN PRN (Reason: Chest Pain) RF: 0 potassium chloride 10 MEQ tablet extended release 10 meq PO QIDP RF: 0 albuterol sulfate [Ventolin HFA] 90 mcg/actuation Hfa Aerosol Inhaler 2 puff INHALATION Q4HP PRN (Reason: Shortness Of Breath) RF: 0 rosuvastatin 10 mg Tablet 10 mg PO HS RF: 0 hydrocodone-acetaminophen 1 TAB tablet 1 tab PO Q6HP PRN (Reason: Pain) RF: 0 Discontinued doxycycline hyclate 100 mg PO BID RF: 0 Follow Up Plan Follow up with: Sandip Lyons DO [Primary Care Provider] - 07/07/20 1:15 pm Patient Disposition: Home, Self-Care Overall status at discharge: patient is progressing back to baseline Discharge Orders: Discharge Order (Routine); Ordered 07/02/20 Ordered By: Andres Skelton
== END 2020-07-02 17:18 | disposition home or self-care (01) | DRG 193 ==
LOC: ED 10:18 → MEDSUR 18:36
PROVIDERS: ADMIT Internal Medicine; ATTEND Internal Medicine

== ENCOUNTER 2021-11-07 18:03 | Inpatient (IN) ==
--- NOTE | 2021-11-07 18:14 | Emergency Department Note ---
SOB HPI General Chief Complaint: Shortness of Breath/Dyspnea Stated Complaint: pnuemonia Time Seen by Provider: 11/07/21 18:13 Source: patient Mode of arrival: ambulatory Limitations: no limitations History of Present Illness HPI Narrative: Narrative: Patient is a 75-year-old male who comes into the emergency department this evening with complaint of cough of brown-colored product, congestion, shortness of breath that started approximately 5 days ago. He has been feeling generalized weakness over the last couple of days. He denies having any hemoptysis, fevers, but occasionally has felt chilled. He has not had any abdominal pain, nausea, or vomiting. He does have some pain located in the left lower rib area. Patient reports pain is aggravated with coughing. Related Data Home Medications Medication Instructions Recorded Confirmed atorvastatin 40 mg tablet 20 mg PO HS 12/04/14 07/01/20 diazepam 10 mg tablet (Valium) 10 mg PO TID 12/04/14 07/01/20 levothyroxine 50 mcg tablet 75 mcg PO DAILY 12/04/14 07/01/20 primidone 50 mg tablet (Mysoline) 100 mg PO TID 12/04/14 07/01/20 sertraline 50 mg tablet 100 mg PO DAILY 12/04/14 07/01/20 aspirin 81 mg tablet,delayed 81 mg PO DAILY 01/18/16 07/01/20 release (Adult Low Dose Aspirin) nitroglycerin 0.4 mg sublingual 0.4 mg SL PRN PRN Chest Pain 01/18/16 07/01/20 tablet potassium chloride 10 mEq 10 meq PO QIDP 08/21/16 07/01/20 tablet,extended release albuterol sulfate 90 mcg/actuation 2 puff inhalation Q4HP PRN 07/01/20 07/01/20 aerosol inhaler (Ventolin HFA) Shortness Of Breath hydrocodone 10 mg-acetaminophen 1 tab PO Q6HP PRN Pain 07/01/20 07/01/20 325 mg tablet rosuvastatin 10 mg tablet 10 mg PO HS 07/01/20 07/01/20 Previous Rx's Medication Instructions Recorded amoxicillin 875 mg-potassium 1 tab PO BID #7 tabs 12/03/20 clavulanate 125 mg tablet (Augmentin) doxycycline monohydrate 100 mg 100 mg PO BID #10 caps 01/26/21 capsule Allergies Allergy/AdvReac Type Severity Reaction Status Date / Time morphine Allergy Mild Redness of Verified 11/07/21 18:08 Skin ciprofloxacin [From Cipro] Allergy Unknown Verified 11/07/21 18:08 Review of Systems ROS ROS Narrative: Narrative: All systems ED: reviewed and negative except as stated. [facility] Narrative Patient History Narrative: Narrative: Medical/Surgical/Family History All Active Problems (Updated 11/07/21 @ 20:00 by SHAKA Lombardi) Acute right flank pain (Acute) Essential tremor (Acute) Chest pain (Acute) Acute exacerbation of chronic obstructive airways disease (Acute) Sunburn due to ultraviolet radiation (other than sun) (Acute) Melena (Acute) Pancreatitis (Acute) Right renal artery stenosis (Acute) Chest wall contusion (Acute) Sprain and strain of wrist (Acute) Acute dyspnea (Acute) Bilateral pneumonia (Acute) COVID-19 (Acute) COPD with hypoxia (Acute) Abdominal aortic aneurysm (Acute) Pneumonia (Acute) Acute exacerbation of chronic obstructive airways disease (Acute) Medical History Acute exacerbation of chronic obstructive airways disease Acute right flank pain Chest pain Essential tremor Social History Smoking Status: Former smoker Alcohol Intake Frequency: does not drink Substance Use: does not use Exam Narrative Narrative: Narrative: General Limitations: no limitations General appearance: Present alert and in no apparent distress Eye Eye: Present normal appearance; Absent scleral icterus ENT ENT: Present mucous membranes dry Neck Neck: Present normal inspection and full ROM; Absent lymphadenopathy Chest Chest: Present normal inspection and symmetric chest wall rise; Absent tenderness Respiratory Respiratory: Present other (Lung sounds clear to auscultate with diminished bases bilaterally.); Absent accessory muscle use Cardiovascular Cardiovascular: Present regular rate, normal rhythm and normal heart sounds Adbominal Abdominal: Present soft; Absent distention or tenderness Extremities Extremities: Present normal inspection and normal capillary refill; Absent pretibial edema or cyanosis Back Back: Present normal inspection and full ROM Neurological Neurological: Present alert and oriented X3 Psychiatric Psychiatric: Present normal affect and normal mood Skin Skin: Present warm (WNL), dry and normal color Course Vital Signs Vital signs: Vital Signs Temperature 98.1 F 11/07/21 18:05 Pulse Rate 105 H 11/07/21 18:05 Respiratory Rate 20 11/07/21 18:05 Blood Pressure 125/83 11/07/21 18:05 Pulse Oximetry (%) 91 11/07/21 18:05 Oxygen Delivery Method 11/07/21 18:05 Temperature 98.1 F 11/07/21 18:05 Pulse Rate 105 H 11/07/21 18:05 Respiratory Rate 20 11/07/21 18:05 Blood Pressure 125/83 11/07/21 18:05 Pulse Oximetry (%) 91 11/07/21 18:05 Oxygen Delivery Method 11/07/21 18:05 [facility] [place] MDM Narrative Medical decision making narrative: Narrative: Patient is a 75-year-old male with history of COPD that comes in today with increased shortness of breath and productive cough. Patient had chest x-ray, CBC, chemistry panel today. He has negative COVID-19 test. No leukocytosis on CBC. His chest x-ray findings show a possible small infiltrate left lower lobe. Patient is hypoxic and requiring oxygen. Patient does not wear oxygen at home. I did consult with the hospitalist, Dr. Boston about potential hospital admission for COPD exacerbation and hypoxia. Dr. Boston accepts patient for hospital admission to [facility]. Patient was ordered Solu-Medrol 125 mg here in the emergency department, 1 g Rocephin, sputum culture, and DuoNeb. Lab Data Result diagrams: 11/07/21 18:24 Labs: Lab Results 11/07/21 11/07/21 Range/Units 18:24 19:17 WBC 7.7 (4.5-11.0) K/mcL RBC 4.50 L (4.63-6.08) M/mcL Hgb 14.5 (13.7-17.5) g/dL Hct 44.1 (40.1-51.0) % POC Hct 47.0 (41-55) MCV 98.0 (80.0-100.0) fL MCH 32.2 (26.0-34.0) pg MCHC 32.9 (31.0-36.0) g/dL RDW 12.7 (11.5-14.5) % Plt Count 183 (140-440) K/mcL MPV 10.3 (7.4-10.4) fL Immature Gran % (Auto) 0.5 (0.0-0.5) % Neut % (Auto) 73.4 (38.0-78.0) % Lymph % (Auto) 15.2 L (15.5-49.0) % [place] % (Auto) 7.7 (1.0-12.0) % Eos % (Auto) 2.3 (0.0-7.0) % Baso % (Auto) 0.9 (0.0-2.0) % Lymph # (Auto) 1.17 L (1.50-4.80) K/mcL [place] # (Auto) 0.59 (0.10-0.90) K/mcL Eos # (Auto) 0.18 (0.00-0.70) K/mcL Baso # (Auto) 0.07 (0.00-0.30) K/mcL Immature Gran # 0.04 (0.00-0.05) K/mcl Absolute Neutrophils 5.66 (1.80-8.00) K/mcL POC Sodium 141 (133-145) POC Potassium 4.2 (3.3-5.1) POC Chloride 104 (96-108) POC Total CO2 27.0 (22-30) POC BUN 10 (6-20) POC Creatinine 0.9 (0.6-1.2) POC Glucose 145 H (70-105) POC WB Ioniz Calcium 1.06 L (1.16-1.32) ED POC Tests ED POC Tests: DILIP - SARS Antigen Negative Discharge Plan Patient/Caregiver Discharge Instructions Pt seen by [employer]OR/PA only: No Clinical Impression: Acute exacerbation of chronic obstructive airways disease, COPD with hypoxia Patient Disposition: Xfer As Inpt ([facility]) Follow up with: Sandip Lyons DO [Primary Care Provider] - Prescriptions: No Action atorvastatin 40 MG tablet 20 mg PO HS primidone [Mysoline] 50 MG tablet 100 mg PO TID levothyroxine 50 MCG tablet 75 mcg PO DAILY diazepam [Valium] 10 MG tablet 10 mg PO TID sertraline 50 MG tablet 100 mg PO DAILY aspirin [Adult Low Dose Aspirin] 81 MG tablet,delayed release (DR/EC) 81 mg PO DAILY nitroglycerin 0.4 MG tablet, sublingual 0.4 mg SL PRN PRN (Reason: Chest Pain) potassium chloride 10 MEQ tablet extended release 10 meq PO QIDP albuterol sulfate [Ventolin HFA] 90 mcg/actuation Hfa Aerosol Inhaler 2 puff INHALATION Q4HP PRN (Reason: Shortness Of Breath) rosuvastatin 10 mg Tablet 10 mg PO HS hydrocodone-acetaminophen 1 TAB tablet 1 tab PO Q6HP PRN (Reason: Pain) amoxicillin-pot clavulanate [Augmentin] 875-125 mg tablet 1 tab PO BID Qty: 7 0RF doxycycline monohydrate 100 mg capsule 100 mg PO BID Qty: 10 0RF
[2021-11-07] MEDS ORDERED: 0.9 % SODIUM CHLORIDE 1,000 ML IV ONE (18:27)
[2021-11-07 19:19] LABS: POC Calcium, Ionized 1.06 (1.16-1.32); POC Creatinine 0.9 (0.6-1.2); POC Potassium 4.2 (3.3-5.1)
[2021-11-07 19:22] LABS: Basophils # (Auto) 0.07 K/mcL (0.00-0.30); Basophils % (Auto) 0.9 % (0.0-2.0); Eosinophils # (Auto) 0.18 K/mcL (0.00-0.70); Eosinophils % (Auto) 2.3 % (0.0-7.0); Hematocrit 44.1 % (40.1-51.0); Hemoglobin 14.5 g/dL (13.7-17.5); Lymphocytes # (Auto) 1.17 K/mcL (1.50-4.80); Lymphocytes % (Auto) 15.2 % (15.5-49.0); Mean Corpuscular HGB Conc 32.9 g/dL (31.0-36.0); Mean Platelet Volume 10.3 fL (7.4-10.4); Monocytes # (Auto) 0.59 K/mcL (0.10-0.90); Monocytes % (Auto) 7.7 % (1.0-12.0); Neutrophils % (Auto) 73.4 % (38.0-78.0); Platelet Count 183 K/mcL (140-440); Red Cell Distribution Width 12.7 % (11.5-14.5); WBC 7.7 K/mcL (4.5-11.0)
[2021-11-07] MEDS ORDERED: methylPREDNISolone SOD SUCC 125 MG/2 ML VIAL IV ONE (19:59)
[2021-11-07] MEDS ORDERED: cefTRIAXone 1 GM VIAL IV ONE (19:59)
[2021-11-07] MEDS ORDERED: IPRATROPIUM/ALBUTEROL 3 ML AMPUL.NEB NEB ONE (19:59)
--- NOTE | 2021-11-07 20:34 | Internal Med History&Physical ---
HPI History of Present Illness Patient information: Note initiated : 11/07/21 at 8:28 pm Service Date, if different from initiated Date: [] Patient: Atilio Gallardo a 75 y/o M admitted for SOB Chief Complaint: [] Chief complaint: Dyspnea History of present illness: Mr. Gallardo is a 75 year old M with a past medical history significant for COPD, CAD, pacemaker implantation, anxiety, and chronic opioid use who presents to [facility] with 2-week history of progressive dyspnea. The patient states that he is quite immobile due to COPD. He states that his shortness of breath progressively worsened. He had a fever of 101 he states. He denies a productive cough or recent sick contacts. The patient denies smoking but states that his continues to smoke around him. Due to his progressive shortness of breath, he decided to come to the ER for further management and evaluation. On arrival he was noted to be hypoxemic. He was hemodynamically stable and afebrile. His labs were unrevealing. In the ER he was given a dose of Solu- Medrol and ceftriaxone. The hospital service was asked admit him for further management evaluation of his COPD exacerbation. Review of Systems All systems: reviewed and no additional remarkable complaints except as stated Constitutional Constitutional: Present as per HPI EENT Eyes: Present as per HPI; Absent blurry vision Cardiovascular Cardiovascular: Present as per HPI; Absent chest pain, dyspnea, dyspnea on exertion, leg edema or palpatations Respiratory Respiratory: Present as per HPI, dyspnea, dyspnea on exertion and wheezing; Absent cough or stridor Gastrointestinal Gastrointestinal: Present as per HPI; Absent abdominal pain, diarrhea, dysphagia, hematemesis, melena, nausea or vomiting Musculoskeletal Musculoskeletal: Present as per HPI; Absent joint swelling, limited range of motion, muscle cramps, muscle weakness or myalgias Integumentary Integumentary: Present as per HPI; Absent erythema, new lesions, rash or wounds Neurological Neurological: Present as per HPI; Absent abnormal gait, behavioral changes, focal weakness, headache(s), loss of vision, numbness, sensory deficit or syncope Endocrine Endocrine: Absent change in body appearance, fatigue or heat intolerance Hematologic/Lymphatic Hematologic/Lymphatic: Present as per HPI PFSH PFSH All Active Problems (Updated 11/07/21 @ 20:33 by Leticia Boston MD) Chronic, continuous use of opioids (Acute) CAD (coronary artery disease) (Acute) Acute respiratory failure with hypoxemia (Acute) Acute right flank pain (Acute) Essential tremor (Acute) Chest pain (Acute) Acute exacerbation of chronic obstructive airways disease (Acute) Sunburn due to ultraviolet radiation (other than sun) (Acute) Melena (Acute) Pancreatitis (Acute) Right renal artery stenosis (Acute) Chest wall contusion (Acute) Sprain and strain of wrist (Acute) Acute dyspnea (Acute) Bilateral pneumonia (Acute) COVID-19 (Acute) COPD with hypoxia (Acute) Abdominal aortic aneurysm (Acute) Pneumonia (Acute) Acute exacerbation of chronic obstructive airways disease (Acute) Medical History Acute exacerbation of chronic obstructive airways disease Acute right flank pain Chest pain Essential tremor Social History smoking status: Former smoker alcohol intake frequency: does not drink substance use type: does not use MEDS/ALLERGIES Home Medications and Allergies Home Medications Medication Instructions Recorded Confirmed Type atorvastatin 40 mg tablet 20 mg PO HS 12/04/14 07/01/20 History diazepam 10 mg tablet (Valium) 10 mg PO TID 12/04/14 07/01/20 History levothyroxine 50 mcg tablet 75 mcg PO DAILY 12/04/14 07/01/20 History primidone 50 mg tablet (Mysoline) 100 mg PO TID 12/04/14 07/01/20 History sertraline 50 mg tablet 100 mg PO DAILY 12/04/14 07/01/20 History aspirin 81 mg tablet,delayed 81 mg PO DAILY 01/18/16 07/01/20 History release (Adult Low Dose Aspirin) nitroglycerin 0.4 mg sublingual 0.4 mg SL PRN PRN Chest Pain 01/18/16 07/01/20 History tablet potassium chloride 10 mEq 10 meq PO QIDP 08/21/16 07/01/20 History tablet,extended release albuterol sulfate 90 mcg/actuation 2 puff inhalation Q4HP PRN 07/01/20 07/01/20 History aerosol inhaler (Ventolin HFA) Shortness Of Breath hydrocodone 10 mg-acetaminophen 1 tab PO Q6HP PRN Pain 07/01/20 07/01/20 History 325 mg tablet rosuvastatin 10 mg tablet 10 mg PO HS 07/01/20 07/01/20 History amoxicillin 875 mg-potassium 1 tab PO BID #7 tabs 12/03/20 Rx clavulanate 125 mg tablet (Augmentin) doxycycline monohydrate 100 mg 100 mg PO BID #10 caps 01/26/21 Rx capsule Allergies Allergy/AdvReac Type Severity Reaction Status Date / Time morphine Allergy Mild Redness of Verified 11/07/21 18:08 Skin ciprofloxacin [From Cipro] Allergy Unknown Verified 11/07/21 18:08 EXAM Constitutional Vitals: Temp Pulse Resp BP Pulse Ox O2 Del Method O2 Flow Rate 98.1 F 105 H 20 125/83 92 2 11/07/21 18:05 11/07/21 18:05 11/07/21 18:05 11/07/21 18:05 11/07/21 19:51 11/07/21 19:50 11/07/21 19:51 General appearance: average body habitus Head Head exam: Present atraumatic, normal inspection and normocephalic Eye Eye exam: Present EOMI, normal appearance and PERRL; Absent conjunctival injection ENT ENT exam: Present normal exam; Absent mucous membranes dry Neck Neck exam: Present full ROM; Absent lymphadenopathy Respiratory Respiratory exam: Present decreased breath sounds and prolonged expiratory phase; Absent CTAB, respiratory distress or wheezes Cardiovascular Cardiovascular exam: Present normal rate and rhythm and RRR; Absent JVD GI/Abdominal GI/Abdominal exam: Present normal bowel sounds and soft; Absent diminished bowel sounds, distended, guarding, mass, rebound or tenderness Neurological Exam Neurological exam: Present alert, CN II-XII intact and oriented X3 Psychiatric Psychiatric exam: Present normal affect and normal mood Skin Skin exam: Present intact and warm; Absent erythema, pallor, petechiae or rash DATA Data Completed and Pending Labs: Labs from last 24 hours 11/07/21 11/07/21 11/07/21 19:17 19:00 18:24 WBC 7.7 RBC 4.50 L Hgb 14.5 Hct 44.1 POC Hct 47.0 MCV 98.0 MCH 32.2 MCHC 32.9 RDW 12.7 Plt Count 183 MPV 10.3 Immature Gran % (Auto) 0.5 Neut % (Auto) 73.4 Lymph % (Auto) 15.2 L [place] % (Auto) 7.7 Eos % (Auto) 2.3 Baso % (Auto) 0.9 Lymph # (Auto) 1.17 L [place] # (Auto) 0.59 Eos # (Auto) 0.18 Baso # (Auto) 0.07 Immature Gran # 0.04 Absolute Neutrophils 5.66 POC Sodium 141 POC Potassium 4.2 POC Chloride 104 POC Total CO2 27.0 POC BUN 10 POC Creatinine 0.9 POC Glucose 145 H POC WB Ioniz Calcium 1.06 L Procalcitonin 0.28 H A/P Assessment and plan (1) Acute dyspnea: Status: Acute (2) Acute exacerbation of chronic obstructive airways disease: Status: Acute (3) Pneumonia: Status: Acute (4) Acute respiratory failure with hypoxemia: Status: Acute (5) CAD (coronary artery disease): Status: Acute (6) Chronic, continuous use of opioids: Status: Acute Narrative A/P Narrative: The patient likely has COPD exacerbation due to ongoing secondhand smoke and possible community-acquired pneumonia versus viral upper respiratory tract infection. Will obtain sputum culture. CT chest with contrast will be obtained to rule out PE. The patient will be started on duo nebs, Pulmicort, Mucinex and encouraged to use incentive spirometry. He will also be started on ceftriaxone and Zithromax. The patient received Solu-Medrol 125 mg IV x1. We will continue to monitor his pulse ox. Medication reconciliation is pending. Time Spent With Patient Time: Total time spent is greater than 50% in coordination of care (as documented) at patient's floor/unit and/or counseling patient: Total time spent with greater than 50% in coordination of care (as documented) at patient's floor/unit and/or counseling patient:: Greater than 70 minutes
--- NOTE | 2021-11-07 21:15 | XRay Report ---
INDICATION: dyspnea TECHNIQUE: PA and lateral upright chest x-ray COMPARISON: Previous chest x-rays dated 01/26/2021, 12/03/2020 FINDINGS: No change in position of left-sided cardiac pacemaker and transvenous leads Lungs: Bilateral, bibasilar pulmonary parenchymal infiltrates. Findings are consistent with pneumonia. Follow-up radiographs recommended. Heart, vascular: No significant cardiomegaly. Pulmonary vascularity is normal. No pulmonary edema or pulmonary congestion Mediastinum, meghana: No mediastinal widening. No hilar mass Pleura:No pleural fluid. No pleural-based mass or calcification Thoracic spine, ribs: No thoracic compression fracture. Ribs are negative. No fracture. No lytic lesion IMPRESSION: 1. Bilateral parenchymal infiltrates with bilateral lower lobe predominance 2. Appearance is consistent with pneumonia Interpreted and Authenticated by: Timi Kelly 11/07/21
[2021-11-07] MEDS ORDERED: ONDANSETRON 4 MG/2 ML VIAL IV PRN (21:18)
[2021-11-07] MEDS ORDERED: AZITHROMYCIN 250 MG TABLET PO ONE (21:18)
[2021-11-07] MEDS ORDERED: BUDESONIDE 0.5 MG/2 ML AMPUL.NEB ONE (22:33)
[2021-11-07] MEDS: ACETAMINOPHEN 325 MG TABLET PO PRN (22:42)
[2021-11-07] MEDS: SENNOSIDES 1 TABLET PO SCH (22:43)
[2021-11-07] MEDS: DOCUSATE SODIUM 100 MG CAPSULE PO SCH (22:43)
[2021-11-07] MEDS: 0.9 % SODIUM CHLORIDE 10 ML SYRINGE IV SCH (22:43)
[2021-11-07] MEDS: IPRATROPIUM/ALBUTEROL 3 ML AMPUL.NEB NEB SCH (23:03)
[2021-11-07] MEDS: BUDESONIDE 0.5 MG/2 ML AMPUL.NEB NEB SCH (23:03)
[2021-11-08] MEDS: guaiFENesin 600 MG TAB.SR.12H PO PRN ×2 (01:54→17:28)
[2021-11-08] MEDS: 0.9 % SODIUM CHLORIDE 10 ML SYRINGE IV SCH ×3 (05:33→23:54)
[2021-11-08 06:03] LABS: Basophils # (Auto) 0.02 K/mcL (0.00-0.30); Basophils % (Auto) 0.3 % (0.0-2.0); Eosinophils # (Auto) 0 K/mcL (0.00-0.70); Eosinophils % (Auto) 0 % (0.0-7.0); Hematocrit 41.9 % (40.1-51.0); Hemoglobin 13.8 g/dL (13.7-17.5); Lymphocytes # (Auto) 0.72 K/mcL (1.50-4.80); Lymphocytes % (Auto) 12.4 % (15.5-49.0); Mean Cell Volume 98.4 fL (80.0-100.0); Mean Corpuscular HGB Conc 32.9 g/dL (31.0-36.0); Mean Platelet Volume 10.3 fL (7.4-10.4); Monocytes # (Auto) 0.06 K/mcL (0.10-0.90); Neutrophils % (Auto) 85.4 % (38.0-78.0); Platelet Count 167 K/mcL (140-440); RBC 4.26 M/mcL (4.63-6.08); Red Cell Distribution Width 12.8 % (11.5-14.5); WBC 5.8 K/mcL (4.5-11.0)
[2021-11-08] MEDS: IPRATROPIUM/ALBUTEROL 3 ML AMPUL.NEB NEB SCH ×5 (06:40→23:30)
[2021-11-08 06:47] LABS: Blood Urea Nitrogen 13 mg/dL (8-23); Calcium 8.8 mg/dL (8.6-10.4); Carbon Dioxide 23 mmol/L (22-30); Chloride 103 mmol/L (96-108); Glomerular Filtration Rate 73; Glucose 241 mg/dL (70-105)
[2021-11-08] MEDS: BUDESONIDE 0.5 MG/2 ML AMPUL.NEB NEB SCH ×2 (07:04→19:54)
--- NOTE | 2021-11-08 08:24 | Cat Scan Report ---
INDICATION: CTpA r/o PE COMPARISON: Previous CT scans dated 08/26/2020, 09/27/2019 TECHNIQUE: Axial contrast enhanced images through the chest. Sagittally and coronally reformatted images. MIP reformatted images. 80ml Isovue 370 injected intravenously. FINDINGS: Lungs:There is centrilobular emphysema consistent with smoking history. There is mild paraseptal emphysema. There are pulmonary parenchymal densities: - 9 mm focal nodule in the left apex, image 17. This is stable since 09/27/2019 - 9 mm spiculated abnormality in the right upper lobe, image 35. This is stable since 09/27/2019 - Subpleural density measures approximately 2.7 cm in the left lower lobe. This is essentially unchanged and is consistent with scarring There is tree in bud infiltrate and multiple small nodules within the left lower lobe. Findings are new and probably inflammatory. Six-month follow-up recommended Mediastinum, vascular:Normal thoracic aorta. No thoracic aortic aneurysm or dissection. No pathologic mediastinal or hilar lymphadenopathy Heart:No cardiomegaly. No pericardial effusion. There is coronary artery calcification Pleura:No significant pleural effusion. No pleural-based mass or calcification Axilla, supraclavicular regions, chest wall:No pathologic axillary or supraclavicular adenopathy. Musculoskeletal:No thoracic compression fracture or lytic lesion. No sternal or rib lesion Upper Abdomen:Previous cholecystectomy IMPRESSION: 1. Centrilobular and paraseptal emphysema 2. Stable nodules since 09/27/2019 3. Tree in bud infiltrates and small noncalcified nodules in left lower lobe are new since 08/27/2020. Appearance is most consistent with infection. 6 month follow-up examination recommended The exam was performed using radiation dose optimization techniques including, but not limited to, automated exposure control, adjustment of the mA and/or kV according to patient size and use of iterative reconstruction technique. Interpreted and Authenticated by: Timi Kelly 11/08/21
[2021-11-08] MEDS: DOCUSATE SODIUM 100 MG CAPSULE PO SCH ×2 (08:37→20:29)
[2021-11-08] MEDS: ENOXAPARIN 40 MG/0.4 ML SYRINGE SQ SCH (08:37)
--- NOTE | 2021-11-08 15:36 | Internal Med Progress Note ---
SUBJECTIVE Subjective Patient information: Note initiated : 11/08/21 at 3:35 pm Service Date, if different from initiated Date: [] Patient: Atilio Gallardo 75 y/o M admitted on 11/07/21 for pnuemonia. Chief Complaint: [SOB] Principal diagnosis: Acute COPD exacerbation, acute hypoxemic respiratory failure Interval history: The patient was resting comfortably in bed. He is in good spirits. He was eager to return home. RN was present at the bedside to discuss plan of care Constitutional Vitals: Vital Signs Temp Pulse Resp BP Pulse Ox O2 Del Method O2 Flow Rate 99.6 F H 88 16 130/70 94 2 11/08/21 10:59 11/08/21 11:41 11/08/21 11:41 11/08/21 10:59 11/08/21 11:41 11/08/21 11:41 11/08/21 11:41 Period Temp Pulse Resp BP Sys/Lomeli Pulse Ox O2 Del Method O2 Flow Rate Last 24 Hr 97.9 F-99.6 F 83-105 12-20 108-134/58-83 83-97 Nasal Cannula- Room Air 2-3 Intake and Output 11/08/21 11/08/21 11/08/21 05:59 13:59 21:59 Intake Total 600 117 Output Total 150 125 Balance 450 -125 117 Weight 91.767 kg Patient Weight 11/09/21 05:59 Weight 91.767 kg Intake & Output: Intake & Output 11/08/21 11/08/21 11/08/21 05:59 13:59 21:59 Intake Total 600 117 Output Total 150 125 Balance 450 -125 117 Weight 91.767 kg Intake: Oral 600 117 Output: Void Amount 150 125 Other: Urine Appearance Clear Clear Urine Color Yellow Dark Yellow Urine Odor Normal # Voids 1 Head Head exam: Present atraumatic and normal inspection Eye Eye exam: Present normal appearance ENT ENT exam: Present mucous membranes moist, normal exam and normal external ear exam Neck Neck exam: Present normal inspection Respiratory Respiratory exam: Present normal respiratory exam Cardiovascular Cardiovascular exam: Present normal rate and rhythm GI/Abdominal GI/Abdominal exam: Present normal bowel sounds Back Exam Back exam: Present normal inspection Neurological Exam Neurological exam: Present alert and oriented X3 Skin Skin exam: Present intact and warm OBJ DATA Labs CBC & Chem 7: 11/08/21 05:35 11/08/21 05:35 Labs: Abnormal Lab Results 11/08/21 11/08/21 11/07/21 05:35 05:35 19:17 RBC 4.26 L Immature Gran % (Auto) 0.9 H Neut % (Auto) 85.4 H Lymph % (Auto) 12.4 L Lymph # (Auto) 0.72 L [place] # (Auto) 0.06 L Glucose 241 H POC Glucose 145 H POC WB Ioniz Calcium 1.06 L C-Reactive Protein 7.40 H Procalcitonin 11/07/21 11/07/21 19:00 18:24 RBC 4.50 L Immature Gran % (Auto) Neut % (Auto) Lymph % (Auto) 15.2 L Lymph # (Auto) 1.17 L [place] # (Auto) Glucose POC Glucose POC WB Ioniz Calcium C-Reactive Protein Procalcitonin 0.28 H Meds: Medications Acetaminophen (Acetaminophen 325 Mg Tablet) 650 mg PO Q6HP PRN; Protocol PRN Reason: Per Pain Protocol/Fever > 101 Last Admin: 11/07/21 22:42 Dose: 650 mg Albuterol/Ipratropium (Ipratropium/Albuterol 3 Ml Ampul.Neb) 3 ml NEB [id number] [facility] Last Admin: 11/08/21 11:41 Dose: 3 ml Budesonide (Budesonide 0.5 Mg/2 Ml Ampul.Neb) 0.5 mg NEB Q12 [facility] Last Admin: 11/08/21 07:04 Dose: 0.5 mg Docusate Sodium (Docusate Sodium 100 Mg Capsule) 100 mg PO BID [facility] Last Admin: 11/08/21 08:37 Dose: 100 mg Enoxaparin Sodium (Enoxaparin 40 Mg/0.4 Ml Syringe) 40 mg SQ DAILY [facility] Last Admin: 11/08/21 08:37 Dose: 40 mg Guaifenesin (Guaifenesin 600 Mg Tab.Sr.12h) 600 mg PO BIDP PRN PRN Reason: Congestion Last Admin: 11/08/21 01:54 Dose: 600 mg Ondansetron HCl (Ondansetron 4 Mg/2 Ml Vial) 4 mg IV Q6HP PRN PRN Reason: Nausea And Vomiting Prednisone (Prednisone 20 Mg Tablet) 40 mg PO [facility] Senna (Sennosides 1 Tablet) 2 tab PO HS [facility] Last Admin: 11/07/21 22:43 Dose: 2 tab Sodium Chloride (0.9 % Sodium Chloride 10 Ml Syringe) 10 ml IV Q8 [facility] Last Admin: 11/08/21 14:37 Dose: 10 ml A/P Assessment and plan (1) Acute dyspnea: Status: Acute (2) Acute exacerbation of chronic obstructive airways disease: Status: Acute (3) Pneumonia: Status: Acute (4) Acute respiratory failure with hypoxemia: Status: Acute (5) CAD (coronary artery disease): Status: Acute (6) Chronic, continuous use of opioids: Status: Acute Narrative A/P Narrative: The patient likely has COPD exacerbation due to ongoing secondhand smoke and possible community-acquired pneumonia versus viral upper respiratory tract infection. Will obtain sputum culture. CT chest with contrast will be obtained to rule out PE. The patient will be started on duo nebs, Pulmicort, Mucinex and encouraged to use incentive spirometry. He will also be started on ceftriaxone and Zithromax. The patient received Solu-Medrol 125 mg IV x1. We will continue to monitor his pulse ox. Medication reconciliation is pending. 11/08: The patient's Solu-Medrol will be switched to prednisone 40 mg p.o. daily. We will continue antibiotics as above. Continue supplemental O2 for saturation greater than 90%. His lungs are slow to recover. He will likely remain in the hospital for another 1 to 2 days. Time Spent With Patient Time: Total time spent is greater than 50% in coordination of care (as documented) at patient's floor/unit and/or counseling patient: Total time spent with greater than 50% in coordination of care (as documented) at patient's floor/unit and/or counseling patient:: 25 - 35 minutes QUALITY VTE Deep Vein Thrombosis/Pulmonary Embolism Present on Admission: No
[2021-11-08] MEDS: ACETAMINOPHEN 325 MG TABLET PO PRN (19:01)
[2021-11-08] MEDS: SENNOSIDES 1 TABLET PO SCH (20:29)
[2021-11-09] MEDS: 0.9 % SODIUM CHLORIDE 10 ML SYRINGE IV SCH ×3 (05:31→20:29)
[2021-11-09] MEDS: BUDESONIDE 0.5 MG/2 ML AMPUL.NEB NEB SCH ×2 (07:32→19:00)
[2021-11-09] MEDS: IPRATROPIUM/ALBUTEROL 3 ML AMPUL.NEB NEB SCH ×5 (07:32→23:21)
[2021-11-09] MEDS: ENOXAPARIN 40 MG/0.4 ML SYRINGE SQ SCH (08:42)
[2021-11-09] MEDS: predniSONE 20 MG TABLET PO SCH (08:42)
[2021-11-09] MEDS: DOCUSATE SODIUM 100 MG CAPSULE PO SCH ×2 (09:05→20:30)
[2021-11-09] MEDS: LEVOFLOXACIN 750 MG TABLET PO SCH (11:02)
--- NOTE | 2021-11-09 12:51 | Internal Med Progress Note ---
SUBJECTIVE Subjective Patient information: Note initiated : 11/09/21 at 12:46 pm Service Date, if different from initiated Date: [] Patient: Atilio Gallardo 75 y/o M admitted on 11/07/21 for pnuemonia. Chief Complaint: [] Principal diagnosis: Acute COPD exacerbation, acute hypoxemic respiratory failure Interval history: The patient was resting comfortably in bed. When I was talking to him he went into a coughing fit. He was not wearing supplemental O2 this morning. Constitutional Vitals: Vital Signs Temp Pulse Resp BP Pulse Ox O2 Del Method O2 Flow Rate 98.5 F 80 18 142/80 92 93 11/09/21 07:58 11/09/21 07:58 11/09/21 07:58 11/09/21 07:58 11/09/21 07:58 11/09/21 07:58 11/08/21 23:57 Period Temp Pulse Resp BP Sys/Lomeli Pulse Ox O2 Del Method O2 Flow Rate Last 24 Hr 97.3 F-100.0 F 79-107 14-26 101-142/52-80 91-95 Room Air-Room Air 0-93 Intake and Output 11/08/21 11/09/21 11/09/21 21:59 05:59 13:59 Intake Total 557 200 240 Output Total 150 750 600 Balance 407 -550 -360 Weight 92.561 kg Intake & Output: Intake & Output 11/08/21 11/09/21 11/09/21 21:59 05:59 13:59 Intake Total 557 200 240 Output Total 150 750 600 Balance 407 -550 -360 Weight 92.561 kg Intake: Oral 557 200 240 Output: Void Amount 150 750 600 # of times incontinent of urine 0 Other: Meal Dinner Breakfast Percent of Meal Consumed 50% 25% Feeding Ability Independent Independent Urine Appearance Clear Clear Urine Color Yellow Yellow Urine Odor Normal Normal Stool Size Moderate Stool Color Brown Stool Consistency Soft # Voids 1 # Bowel Movements 1 1 Head Head exam: Present atraumatic and normal inspection Eye Eye exam: Present normal appearance ENT ENT exam: Present mucous membranes moist, normal exam and normal external ear exam Neck Neck exam: Present normal inspection Respiratory Respiratory exam: Present normal respiratory exam Cardiovascular Cardiovascular exam: Present normal rate and rhythm GI/Abdominal GI/Abdominal exam: Present normal bowel sounds Back Exam Back exam: Present normal inspection Neurological Exam Neurological exam: Present alert and oriented X3 Skin Skin exam: Present intact and warm OBJ DATA Labs CBC & Chem 7: 11/08/21 05:35 11/08/21 05:35 Labs: Abnormal Lab Results 11/08/21 11/08/21 11/07/21 05:35 05:35 19:17 RBC 4.26 L Immature Gran % (Auto) 0.9 H Neut % (Auto) 85.4 H Lymph % (Auto) 12.4 L Lymph # (Auto) 0.72 L [place] # (Auto) 0.06 L Glucose 241 H POC Glucose 145 H POC WB Ioniz Calcium 1.06 L C-Reactive Protein 7.40 H Procalcitonin 11/07/21 11/07/21 19:00 18:24 RBC 4.50 L Immature Gran % (Auto) Neut % (Auto) Lymph % (Auto) 15.2 L Lymph # (Auto) 1.17 L [place] # (Auto) Glucose POC Glucose POC WB Ioniz Calcium C-Reactive Protein Procalcitonin 0.28 H Meds: Medications Acetaminophen (Acetaminophen 325 Mg Tablet) 650 mg PO Q6HP PRN; Protocol PRN Reason: Per Pain Protocol/Fever > 101 Last Admin: 11/08/21 19:01 Dose: 650 mg Albuterol/Ipratropium (Ipratropium/Albuterol 3 Ml Ampul.Neb) 3 ml NEB [id number] [facility] Last Admin: 11/09/21 07:32 Dose: 3 ml Budesonide (Budesonide 0.5 Mg/2 Ml Ampul.Neb) 0.5 mg NEB Q12 [facility] Last Admin: 11/09/21 07:32 Dose: 0.5 mg Docusate Sodium (Docusate Sodium 100 Mg Capsule) 100 mg PO BID [facility] Last Admin: 11/09/21 09:05 Dose: Not Given Enoxaparin Sodium (Enoxaparin 40 Mg/0.4 Ml Syringe) 40 mg SQ DAILY [facility] Last Admin: 11/09/21 08:42 Dose: 40 mg Guaifenesin (Guaifenesin 600 Mg Tab.Sr.12h) 600 mg PO BIDP PRN PRN Reason: Congestion Last Admin: 11/08/21 17:28 Dose: 600 mg Levofloxacin (Levofloxacin 750 Mg Tablet) 750 mg PO DAILY [facility]; Protocol Last Admin: 11/09/21 11:02 Dose: 750 mg Ondansetron HCl (Ondansetron 4 Mg/2 Ml Vial) 4 mg IV Q6HP PRN PRN Reason: Nausea And Vomiting Prednisone (Prednisone 20 Mg Tablet) 40 mg PO [facility] Last Admin: 11/09/21 08:42 Dose: 40 mg Senna (Sennosides 1 Tablet) 2 tab PO [facility] Last Admin: 11/08/21 20:29 Dose: Not Given Sodium Chloride (0.9 % Sodium Chloride 10 Ml Syringe) 10 ml IV Q8 [facility] Last Admin: 11/09/21 05:31 Dose: 10 ml A/P Assessment and plan (1) Acute dyspnea: Status: Acute (2) Acute exacerbation of chronic obstructive airways disease: Status: Acute (3) Pneumonia: Status: Acute (4) Acute respiratory failure with hypoxemia: Status: Acute (5) CAD (coronary artery disease): Status: Acute (6) Chronic, continuous use of opioids: Status: Acute Narrative A/P Narrative: The patient likely has COPD exacerbation due to ongoing secondhand smoke and possible community-acquired pneumonia versus viral upper respiratory tract infection. Will obtain sputum culture. CT chest with contrast will be obtained to rule out PE. The patient will be started on duo nebs, Pulmicort, Mucinex and encouraged to use incentive spirometry. He will also be started on ceftriaxone and Zithromax. The patient received Solu-Medrol 125 mg IV x1. We will continue to monitor his pulse ox. Medication reconciliation is pending. 11/08: The patient's Solu-Medrol will be switched to prednisone 40 mg p.o. daily. We will continue antibiotics as above. Continue supplemental O2 for saturation greater than 90%. His lungs are slow to recover. He will likely remain in the hospital for another 1 to 2 days. 11/09: The patient still goes into coughing fits. It is reassuring that he has been weaned off supplemental O2. I will switch him over to Levaquin 750 mg p.o. daily for total of 5 days. We will continue to treat his COPD exacerbation. Time Spent With Patient Time: Total time spent is greater than 50% in coordination of care (as documented) at patient's floor/unit and/or counseling patient: Total time spent with greater than 50% in coordination of care (as documented) at patient's floor/unit and/or counseling patient:: 25 - 35 minutes QUALITY VTE Deep Vein Thrombosis/Pulmonary Embolism Present on Admission: No
[2021-11-09] MEDS: ACETAMINOPHEN 325 MG TABLET PO PRN ×2 (14:32→20:34)
[2021-11-09] MEDS: guaiFENesin 600 MG TAB.SR.12H PO PRN (14:32)
[2021-11-09] MEDS: SENNOSIDES 1 TABLET PO SCH (20:30)
[2021-11-10] MEDS: guaiFENesin 600 MG TAB.SR.12H PO PRN (02:32)
[2021-11-10] MEDS ORDERED: HYDROcodone/APAP 10/325MG TABLET PO PRN (05:49)
[2021-11-10] MEDS: 0.9 % SODIUM CHLORIDE 10 ML SYRINGE IV SCH (06:13)
[2021-11-10] MEDS: IPRATROPIUM/ALBUTEROL 3 ML AMPUL.NEB NEB SCH (07:41)
[2021-11-10] MEDS: BUDESONIDE 0.5 MG/2 ML AMPUL.NEB NEB SCH (08:00)
[2021-11-10] MEDS: predniSONE 20 MG TABLET PO SCH (08:02)
[2021-11-10] MEDS: DOCUSATE SODIUM 100 MG CAPSULE PO SCH (09:46)
[2021-11-10] MEDS: LEVOFLOXACIN 750 MG TABLET PO SCH (09:46)
[2021-11-10] MEDS: ENOXAPARIN 40 MG/0.4 ML SYRINGE SQ SCH (09:47)
[2021-11-10 09:50] LABS: Basophils # (Auto) 0.02 K/mcL (0.00-0.30); Basophils % (Auto) 0.3 % (0.0-2.0); Eosinophils # (Auto) 0.01 K/mcL (0.00-0.70); Eosinophils % (Auto) 0.1 % (0.0-7.0); Hematocrit 48.2 % (40.1-51.0); Lymphocytes # (Auto) 1.59 K/mcL (1.50-4.80); Lymphocytes % (Auto) 20.8 % (15.5-49.0); Mean Cell Volume 96.2 fL (80.0-100.0); Mean Corpuscular HGB Conc 33.2 g/dL (31.0-36.0); Mean Platelet Volume 9.6 fL (7.4-10.4); Monocytes # (Auto) 0.43 K/mcL (0.10-0.90); Monocytes % (Auto) 5.6 % (1.0-12.0); Neutrophils % (Auto) 71.8 % (38.0-78.0); Platelet Count 188 K/mcL (140-440); RBC 5.01 M/mcL (4.63-6.08); Red Cell Distribution Width 13.3 % (11.5-14.5); WBC 7.7 K/mcL (4.5-11.0)
[2021-11-10 10:16] LABS: Blood Urea Nitrogen 12 mg/dL (8-23); Calcium 9.2 mg/dL (8.6-10.4); Carbon Dioxide 23 mmol/L (22-30); Chloride 104 mmol/L (96-108); Glomerular Filtration Rate 83; Glucose 214 mg/dL (70-105)
--- NOTE | 2021-11-10 12:01 | Discharge Summary ---
Discharge Provider Provider IMPORTANT FOLLOW-UP INFORMATION FOR PCP: The patient may benefit from referral to a software licensing specialist Patient information: Note initiated : 11/10/21 at 12:01 pm Service Date, if different from initiated Date: [] Patient: Atilio Gallardo 75 y/o M admitted on 11/07/21 for pnuemonia. Chief Complaint: [] Date of admission: 11/07/21 21:14 Discharge date: 11/10/21 Primary care physician: Sandip Lyons Consults: 11/07/21 Consult to Physician [CONS] Stat Comment: Consulting Provider: Leticia Boston Reason For Exam: Physician to Consult COURSE Hospital Course Hospital course: A/P Narrative: The patient likely has COPD exacerbation due to ongoing secondhand smoke and possible community-acquired pneumonia versus viral upper respiratory tract infe ction. Will obtain sputum culture. CT chest with contrast will be obtained to rule out PE. The patient will be started on duo nebs, Pulmicort, Mucinex and encouraged to use incentive spirometry. He will also be started on ceftriaxone and Zithromax. The patient received Solu-Medrol 125 mg IV x1. We will continue to monitor his pulse ox. Medication reconciliation is pending. 11/08: The patient's Solu-Medrol will be switched to prednisone 40 mg p.o. daily. We will continue antibiotics as above. Continue supplemental O2 for saturation greater than 90%. His lungs are slow to recover. He will likely remain in the hospital for another 1 to 2 days. 11/09: The patient still goes into coughing fits. It is reassuring that he has been weaned off supplemental O2. I will switch him over to Levaquin 750 mg p.o. daily for total of 5 days. We will continue to treat his COPD exacerbation. 11/10: The patient is doing well be discharged home. He does not require supplemental O2 and did well with physical therapy. He will be discharged with Levaquin, prednisone, albuterol and Advair. He is to follow-up with his primary care physician within 1 week's time. Discharge diagnosis: AECOPD, CAP Time Spent with Patient Time attestation: Total time spent providing and/or coordinating discharge services: Time spent: Greater than 30 minutes EXAM Constitutional Vitals: Temp Pulse Resp BP Pulse Ox O2 Del Method O2 Flow Rate 97.6 F 66 20 147/85 94 0 11/10/21 07:49 11/10/21 08:00 11/10/21 08:00 11/10/21 07:49 11/10/21 07:49 11/10/21 08:00 11/10/21 07:41 General appearance: average body habitus Head Head exam: Present atraumatic, normal inspection and normocephalic Eye Eye exam: Present EOMI, normal appearance and PERRL; Absent conjunctival injection ENT ENT exam: Present normal exam; Absent mucous membranes dry Neck Neck exam: Present full ROM; Absent lymphadenopathy Respiratory Respiratory exam: Present normal respiratory exam and CTAB; Absent decreased breath sounds, respiratory distress or wheezes Cardiovascular Cardiovascular exam: Present normal rate and rhythm and RRR; Absent JVD GI/Abdominal GI/Abdominal exam: Present normal bowel sounds and soft; Absent diminished bowel sounds, distended, guarding, mass, rebound or tenderness Neurological Exam Neurological exam: Present alert, CN II-XII intact and oriented X3 Psychiatric Psychiatric exam: Present normal affect and normal mood Skin Skin exam: Present intact and warm; Absent erythema, pallor, petechiae or rash Discharge Data Data Completed and Pending Labs on day of discharge: Labs from last 24 hours 11/10/21 11/10/21 09:20 09:20 WBC 7.7 RBC 5.01 Hgb 16.0 Hct 48.2 MCV 96.2 MCH 31.9 MCHC 33.2 RDW 13.3 Plt Count 188 MPV 9.6 Immature Gran % (Auto) 1.4 H Neut % (Auto) 71.8 Lymph % (Auto) 20.8 [place] % (Auto) 5.6 Eos % (Auto) 0.1 Baso % (Auto) 0.3 Lymph # (Auto) 1.59 [place] # (Auto) 0.43 Eos # (Auto) 0.01 Baso # (Auto) 0.02 Immature Gran # 0.11 H Absolute Neutrophils 5.49 Sodium 139 Potassium 3.9 Chloride 104 Carbon Dioxide 23 Anion Gap 12.0 BUN 12 Creatinine 0.9 GFR Calculation 83 Glucose 214 H Calcium 9.2 Preliminary micro results at discharge 11/08/21 16:00 Gram Stain - Preliminary Sputum source - Expectorated Discharge Plan Patient/Caregiver Discharge Instructions Activity: increase activity as tolerated Diet: Regular Diet Instructions: COPD (Chronic Obstructive Pulmonary Disease) (DC), Dyspnea Scale and Exercise (DC) Prescriptions: New prednisone 20 mg Tablet 40 mg PO QAMCC 2 Days Qty: 4 0RF albuterol sulfate 90 mcg/actuation HFA aerosol inhaler 2 puff inhalation Q6H PRN (Reason: shortness of breath or wheezing) Qty: 8.5 0RF fluticasone propion-salmeterol [Advair Diskus] 250-50 mcg/dose blister with device 1 inh inhalation BID Qty: 60 0RF Continued atorvastatin 40 MG tablet 20 mg PO HS primidone [Mysoline] 50 MG tablet 100 mg PO TID levothyroxine 50 MCG tablet 75 mcg PO DAILY diazepam [Valium] 10 MG tablet 10 mg PO TID sertraline 50 MG tablet 100 mg PO DAILY aspirin [Adult Low Dose Aspirin] 81 MG tablet,delayed release (DR/EC) 81 mg PO DAILY nitroglycerin 0.4 MG tablet, sublingual 0.4 mg SL PRN PRN (Reason: Chest Pain) potassium chloride 10 MEQ tablet extended release 10 meq PO QIDP albuterol sulfate [Ventolin HFA] 90 mcg/actuation Hfa Aerosol Inhaler 2 puff INHALATION Q4HP PRN (Reason: Shortness Of Breath) rosuvastatin 10 mg Tablet 10 mg PO HS hydrocodone-acetaminophen 1 TAB tablet 1 tab PO Q6HP PRN (Reason: Pain) Discontinued amoxicillin-pot clavulanate [Augmentin] 875-125 mg tablet 1 tab PO BID Qty: 7 0RF doxycycline monohydrate 100 mg capsule 100 mg PO BID Qty: 10 0RF Follow Up Plan Follow up with: Sandip Lyons DO [Primary Care Provider] - 11/17/21 10:30 am () Patient Disposition: Home, Self-Care Rehab Potential: Good I certify that the patient requires SNF services: No Overall status at discharge: patient is progressing back to baseline Discharge Orders: Discharge Order (Routine); Ordered 11/10/21 Ordered By: Leticia ALBERT VTE Deep Vein Thrombosis/Pulmonary Embolism Present on Admission: No
== END 2021-11-10 12:00 | disposition home or self-care (01) | DRG 190 ==
LOC: ED 18:03 → MEDSUR 21:14
PROVIDERS: ADMIT Student in an Organized Health Care Education/Training Program; ATTEND Student in an Organized Health Care Education/Training Program